=== PATIENT | female | born 1995 | race Two or more races ===

== ENCOUNTER 2024-04-19 09:18 | Outpatient (AMB) | payer OTHER, SELFPAY ==
[2024-04-19 09:23] VITALS: BP 122/84; PULSE 83; TEMP 36.9; O2SAT 98; BMI 34.2
--- NOTE | 2024-04-19 09:23 | MHC.OFFWIV ---
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 Tingling fingers. Started yesterday. 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 She awoke with stiffness and pain in top of trapezius and radiating into neck. Pain with movement of her shoulder and pain with supporting shoulder. She has been using ibuprofen 600 mg once a day with some improvement temporarily No fevers chills. No inflammation and shoulder. No decreased sensation she does have tingling in her fingers. No weakness at fingers. No change of color or warmth PFSH Social History Patient Tobacco Use Status: Never used Tobacco Review of Systems Const Details: See HPI Physical Exam Vital Signs: Last Vital Signs Temp 98.4 F 04/19/24 09:23 Pulse 83 04/19/24 09:23 BP 122/84 04/19/24 09:23 Pulse Ox 98 04/19/24 09:23 Oxygen Delivery Method Room Air 04/19/24 09:23 BMI result Body Mass Index 34.2 Const General: no acute distress and well developed Nutritional Appearance: well nourished Orientation/consciousness: patient oriented x3 HEENT Head: Yes normocephalic and Yes atraumatic Eyes General: appearance normal, both eyes and all related structures Pupils: Equal, round and reactive pupils present EOM: EOMs intact bilaterally Resp Effort & Inspection: normal respiratory effort Auscultation: clear to auscultation bilaterally Cardio Rate: regular rate Rhythm: regular rhythm Heart sounds: S1 normal heart sound present, S2 normal heart sound present, no gallops, no murmurs and no rubs Neuro General: patient oriented x3 and gait normal Cranial nerves: Yes Equal, round and reactive pupils present Extrem Other: Right shoulder mildly slumped due to pain. Decreased range of motion. Normal caller and strength at hand and fingers. Normal circulation. Psych Affect: normal affect Assessment & Plan Assessment & Plan (1) Trapezius muscle strain: Code(s): S46.819A - Strain of other muscles, fascia and tendons at shoulder and upper arm level, unspecified arm, initial encounter Plan: Relative rest and will give patient a sling. Use passive range of motion To avoid frozen shoulder Ice/heat Cyclobenzaprine Ibuprofen Call or return if not improving or worsens or for any new, concerning symptoms Medications: New cyclobenzaprine 10 mg PO TID 10 days PRN 30 tabs 0RF muscle spasm ibuprofen 600 mg PO TID 30 days PRN 90 tabs 0RF pain Coding Level of Care Code Est Pt Level 3 (93847) Diagnoses Trapezius muscle strain S46.819A
== END 2024-04-19 10:50 | disposition home or self-care (01) ==
PROVIDERS: Visit Provider Family Medicine
DX: S46.819A Strain of other muscles, fascia and tendons at shoulder and upper arm level, unspecified arm, initial encounter (principal)
CPT/HCPCS: 99051; 99213